=== PATIENT | female | born 1980 | race Caucasian/White ===

== ENCOUNTER 2019-01-27 10:19 | Emergency (ER) | payer SELFPAY ==
--- NOTE | 2019-01-27 10:56 | EDM.PDOC ---
ED HPI GENERAL MEDICAL PROBLEM - General Chief Complaint: Gastrointestinal Problem Stated Complaint: ABD PAIN Time Seen by Provider: 01/27/19 10:51 Source of Information: Reports: Patient History Limitations: Reports: No Limitations - History of Present Illness INITIAL COMMENTS - FREE TEXT/NARRATIVE: pt. is a 38 y/o female w/ no significant PMH, LMP: last month, presenting w/ 3- days of nausea, vomiting and diarrhea. states diarrhea 2 times daily w/ nausea/ vomiting 4-6 times; mentions it was worse this AM ; hence presenting to ED. Otherwise denies other symptoms. Does mention sick contacts w/ bronchitis. pt. has been drinking plenty of fluids but is most concerned about her nausea. abdomen Pain Score (Numeric/FACES): 5 - Related Data Allergies Allergy/AdvReac Type Severity Reaction Status Date / Time No Known Allergies Allergy Verified 01/27/19 10:31 Home Meds: Home Meds Ondansetron [Zofran ODT] 4 mg PO Q8H PRN 2 Days #6 tab.dis 01/27/19 [Rx] Past Medical History HEENT History: Reports: None Cardiovascular History: Reports: None Respiratory History: Reports: None Gastrointestinal History: Reports: None Genitourinary History: Reports: None [employer] History: Reports: Musculoskeletal History: Reports: Other (See Below) Other Musculoskeletal History: left arm fx Neurological History: Reports: None Psychiatric History: Reports: None Endocrine/Metabolic History: Reports: None Hematologic History: Reports: None Immunologic History: Reports: None Oncologic (Cancer) History: Reports: None Dermatologic History: Reports: None - Infectious Disease History Infectious Disease History: Reports: Chicken Pox - Past Surgical History Head Surgeries/Procedures: Reports: None HEENT Surgical History: Reports: None Cardiovascular Surgical History: Reports: None Respiratory Surgical History: Reports: None GI Surgical History: Reports: None Female Surgical History: Reports: Section Neurological Surgical History: Reports: None Musculoskeletal Surgical History: Reports: Other (See Below) Oncologic Surgical History: Reports: None Dermatological Surgical History: Reports: None Social & Family History - Family History Family Medical History: Noncontributory Endocrine/Metabolic: Reports: Diabetes, type II Oncologic: Reports: Bone, Brain, Lung - Tobacco Use Smoking Status *Q: Never Smoker Second Hand Smoke Exposure: No - Caffeine Use Caffeine Use: Reports: Soda - Recreational Drug Use Recreational Drug Use: No ED ROS GENERAL - Review of Systems Review Of Systems: See Below Constitutional: Reports: Chills. Denies: Fever HEENT: Reports: No Symptoms Respiratory: Reports: No Symptoms Cardiovascular: Reports: No Symptoms GI/Abdominal: Reports: Abdominal Pain, Diarrhea, Decreased Appetite, Nausea, Vomiting. Denies: Black Stool, Bloody Stool, Constipation, Hematochezia : Reports: No Symptoms. Denies: Discharge, Dysuria, Flank Pain, Irregular Menses Musculoskeletal: Reports: No Symptoms Skin: Reports: No Symptoms Neurological: Reports: No Symptoms Psychiatric: Reports: No Symptoms ED EXAM, GI/ABD - Physical Exam Exam: See Below Exam Limited By: No Limitations General Appearance: Alert, No Apparent Distress Ears: Normal External Exam Nose: Normal Inspection Throat/Mouth: Normal Inspection Head: Atraumatic, Normocephalic Respiratory/Chest: No Respiratory Distress, Lungs Clear Cardiovascular: Regular Rate, Rhythm, No Edema GI/Abdominal Exam: Soft, Non-Tender, No Organomegaly, No Distention, No Abnormal Bruit, No Mass, Other (some mild discomfort localized to lower abdomen. no point tendernesss ) Neurological: Alert, Oriented Psychiatric: Normal Affect, Normal Mood Skin Exam: Warm, Dry Course - Vital Signs Last Recorded V/S: Last Vital Signs Temp 96.8 F 01/27/19 10:32 Pulse 74 01/27/19 10:32 Resp 16 01/27/19 10:32 BP 137/65 01/27/19 10:32 Pulse Ox 96 01/27/19 10:32 - Orders/Labs/Meds Labs: Laboratory Tests 01/27/19 01/27/19 Range/Units 10:36 10:36 Urine Color YELLOW Urine Appearance CLEAR Urine pH 5.5 (5.0-8.0) Ur Specific [place] >= 1.030 (1.001-1.035) Urine Protein NEGATIVE (NEGATIVE) mg/dL Urine Glucose (UA) NEGATIVE (NEGATIVE) mg/dL Urine Ketones NEGATIVE (NEGATIVE) mg/dL Urine Occult Blood NEGATIVE (NEGATIVE) Urine Nitrite NEGATIVE (NEGATIVE) Urine Bilirubin NEGATIVE (NEGATIVE) Urine Urobilinogen 0.2 (<2.0) EU/dL Ur Leukocyte Esterase NEGATIVE (NEGATIVE) Urine RBC 0-2 (0-2/HPF) Urine WBC 0-3 (0-5/HPF) Ur Epithelial Cells OCCASIONAL (NONE-FEW) Urine Bacteria RARE (NEGATIVE) Urine HCG, Qual NEGATIVE (NEGATIVE) Meds: Medications Discontinued Medications Generic Name Dose Route Start Last Admin Trade Name Freq PRN Reason Stop Dose Admin Ondansetron HCl 8 mg 01/27/19 10:50 01/27/19 11:00 Zofran PO 01/27/19 10:51 Not Given ONETIME ONE Ondansetron HCl Confirm 01/27/19 10:58 01/27/19 11:00 Zofran Odt Administered 01/27/19 10:59 Not Given Dose 8 mg .ROUTE .STK-MED ONE Ondansetron HCl 8 mg 01/27/19 10:59 01/27/19 11:00 Zofran Odt PO 01/27/19 11:00 8 mg ONETIME ONE Administration - Re-Assessments/Exams Free Text/Narrative Re-Assessment/Exam: UA and HCG negative. Vitals stable. Zofran improved Nausea. Most likely viral gastroenteritis 01/27/19 11:04 Departure - Departure Time of Disposition: 11:12 Disposition: Home, Self-Care 01 Clinical Impression: Gastroenteritis - Discharge Information Prescriptions: Ondansetron [Zofran ODT] 4 mg PO Q8H PRN 2 Days #6 tab.dis PRN Reason: Nausea/Vomiting Instructions: Nausea and Vomiting, Adult, [id number] Referrals: PCP,None [Primary Care Provider] - Forms: ED Department Discharge Additional Instructions: Patient advised to follow-up with PCP within 1-week. Return to ED if oral fluids cannot be tolerated. Advised to return if symptoms of fever. body aches or dizziness, chest pain develop. Care Plan Goals: Advised to follow up with PCP within 1-week. Return if fever develops.
[2019-01-27] MEDS ORDERED: Ondansetron 8 MG Tab.DIS ONE (10:58)
[2019-01-27] MEDS ORDERED: Ondansetron 4 MG Tab.DIS PO ONE (10:59)
[2019-01-27 11:27] VITALS: BP 141/72; PULSE 64
== END 2019-01-27 11:28 | disposition home or self-care (01) ==
LOC: MW.ED 10:19
DX: K52.9 Noninfective gastroenteritis and colitis, unspecified (principal)
CPT/HCPCS: 81001; 81025; 99284; A9270

== ENCOUNTER 2021-11-06 01:46 | Emergency (ER) | payer SELFPAY ==
[2021-11-06] MEDS ORDERED: Acetaminophen/HYDROcodone 325-5 MG Tab PO ONE (03:01)
[2021-11-06 03:40] VITALS: BP 122/68; PULSE 72
== END 2021-11-06 03:39 | disposition home or self-care (01) ==
LOC: MW.ED 01:46
DX: M25.561 Pain in right knee (principal); W19.XXXA Unspecified fall, initial encounter
CPT/HCPCS: 73562; 99283; A9270; 99282

== ENCOUNTER 2022-01-31 06:05 | Day surgery (SDC) | payer SELFPAY ==
[~2022-01-31 06:05] MED LIST: Lactated Ringers 1,000 ML IV SCH
[2022-01-31] MEDS ORDERED: Ondansetron 4 MG/2 ML SDV IVPUSH PRN (06:50)
[2022-01-31] MEDS ORDERED: HYDROmorphone 1 MG/ML Syringe IVPUSH PRN (06:50)
[2022-01-31] MEDS ORDERED: fentaNYL 50 MCG/ML SDV IVPUSH PRN (06:50)
[2022-01-31] MEDS ORDERED: Metoclopramide 10 MG/2 ML SDV IVPUSH PRN (06:50)
[2022-01-31] MEDS ORDERED: Naloxone 0.4 MG/ML SDV IVPUSH PRN (06:50)
[2022-01-31] MEDS ORDERED: Albuterol 0.083% 2.5 MG/3 ML Neb Soln NEB PRN (06:50)
[2022-01-31] MEDS ORDERED: Morphine 2 MG/ML SYRINGE IVPUSH PRN (06:50)
[2022-01-31] MEDS ORDERED: Lidocaine 1% 20 ML MDV ONE (06:52)
[2022-01-31] MEDS ORDERED: ceFAZolin 2 GM in Premix Bag 1 BAG IV SCH (07:00)
[2022-01-31] MEDS ORDERED: fentaNYL 100 MCG/2 ML SDV ONE ×3 (07:01→08:31)
[2022-01-31] MEDS ORDERED: Propofol 200 MG/20 ML SDV ONE (07:01)
[2022-01-31] MEDS ORDERED: Bupivacaine 0.25%/EPINEPHrine 1:200,000 10 ML SDV ONE (07:42)
[2022-01-31] MEDS ORDERED: ceFAZolin 2 GM Vial ONE (07:58)
[2022-01-31] MEDS ORDERED: Rocuronium Bromide 50 MG/5 ML Syringe ONE (08:23)
[2022-01-31] MEDS ORDERED: Dexamethasone 4 MG/ML 5 ML MDV ONE (08:23)
[2022-01-31] MEDS ORDERED: Glycopyrrolate 0.2 MG/ML SDV ONE (08:23)
[2022-01-31] MEDS ORDERED: Sugammadex Sodium 200 MG/2 ML VIAL ONE (08:23)
[2022-01-31] MEDS ORDERED: Ketorolac 30 MG/ML SDV ONE (08:23)
[2022-01-31] MEDS ORDERED: Ondansetron 4 MG/2 ML SDV ONE (08:23)
[2022-01-31 10:06] VITALS: BP 124/60; PULSE 79
== END 2022-01-31 11:50 | disposition home or self-care (01) ==
LOC: MW.SDS 06:05
PROVIDERS: ATTEND Orthopaedic Surgery
DX: S83.242A Other tear of medial meniscus, current injury, left knee, initial encounter (principal); S83.512A Sprain of anterior cruciate ligament of left knee, initial encounter; M89.9 Disorder of bone, unspecified; J45.909 Unspecified asthma, uncomplicated; E66.9 Obesity, unspecified; M19.90 Unspecified osteoarthritis, unspecified site; F17.290 Nicotine dependence, other tobacco product, uncomplicated; Z68.42 Body mass index [BMI] 45.0-49.9, adult; Z98.890 Other specified postprocedural states; Z79.899 Other long term (current) drug therapy
CPT/HCPCS: 29881; 29999; 81025; J0131; J0690; J1100; J1885; J2405; J2704; J3010; J3490; J7120; 01400